=== PATIENT | male | born 1995 | race Caucasian/White ===

== ENCOUNTER → 2016-04-30 | Outpatient (CLI) | payer BC | LOC: BHSO 09:51 | DX: F31.73 Bipolar disorder, in partial remission, most recent episode manic (principal) ==

== ENCOUNTER → 2016-07-08 | Outpatient (CLI) | payer BC | LOC: BHSO 10:55 | DX: F31.73 Bipolar disorder, in partial remission, most recent episode manic (principal) ==

== ENCOUNTER → 2016-11-26 | Outpatient (CLI) | payer BC | LOC: BHSO 10:38 | DX: F20.9 Schizophrenia, unspecified (principal) ==

== ENCOUNTER → 2017-07-22 | Outpatient (CLI) | payer BC | LOC: BHSO 12:59 | DX: F31.81 Bipolar II disorder (principal) | CPT/HCPCS: G0463 ==

== ENCOUNTER → 2018-01-10 | Outpatient (CLI) | payer BC | LOC: BHSO 09:58 | DX: F31.81 Bipolar II disorder (principal) | CPT/HCPCS: G0463 ==

== ENCOUNTER → 2018-08-17 | Outpatient (CLI) | payer BC | LOC: BHSO 10:18 | DX: F31.81 Bipolar II disorder (principal) | CPT/HCPCS: G0463 ==

== ENCOUNTER → 2018-11-16 | Outpatient (CLI) | payer BC | LOC: BHSO 10:56 | DX: F31.81 Bipolar II disorder (principal) | CPT/HCPCS: G0463 ==

== ENCOUNTER → 2019-10-23 | Outpatient (CLI) | payer BC | LOC: BHSO 10:13 | DX: F31.81 Bipolar II disorder (principal) | CPT/HCPCS: G0463 ==

== ENCOUNTER 2020-03-07 13:29 | Emergency (ER) | payer BC ==
[~2020-03-07] VITALS: Ht 172.7 cm; Wt 71.8 kg
[2020-03-07 15:31] LABS: COLLECTION METHOD CLEAN CATCH
[2020-03-07 15:37] LABS: PH 8 (5-8); SQUAMOUS EPITHELIAL None Seen /hpf; URINE APPEARANCE Clear; URINE BACTERIA None Seen /hpf; URINE BILIRUBIN Negative (NEGATIVE); URINE BLOOD Negative (NEGATIVE); URINE COLOR Straw; URINE GLUCOSE Negative (NEGATIVE); URINE KETONE Negative (NEGATIVE); URINE LEUKOCYTE ESTERASE Negative (NEGATIVE); URINE NITRATE Negative (NEGATIVE); URINE PROTEIN(semi-quant) Negative (NEGATIVE); URINE RBC None Seen /hpf; URINE UROBILINOGEN Negative (NEGATIVE)
[2020-03-07 16:17] LABS: BASO % 0.6 % (0.0-2.0); EOS # 0.3 (0.0-0.7); EOS % 4.5 % (0-4.0); GRAN # 4.2 (1.4-6.5); GRAN % 63.3 % (42.2-75.2); HEMATOCRIT 44.9 % (42.0-52.0); HEMOGLOBIN 15.6 g/dl (13.5-18.0); LYMPH # 1.7 (1.2-3.4); LYMPH % 25.2 % (20.0-51.0); MEAN CELL VOLUME 86 fl (80.0-100.0); MEAN CORPUSCULAR HEMOGLOBIN 30 pg (27.0-31.0); MEAN CORPUSCULAR HGB CONC 35 g/dl (33.0-37.0); MEAN PLATELET VOLUME 10.3 fl (7.4-10.4); MONO # 0.4 (0.1-0.6); MONO % 6.2 % (1.7-9.3); PLATELET COUNT 235 K/mm3 (130-400); RED BLOOD COUNT 5.22 M/mm3 (4.20-5.60); REDCELL DISTRIBUTION WIDTH-CV 12.5 % (11.5-14.5)
[2020-03-07 16:32] LABS: ALANINE AMINOTRANSFERASE 16 U/L (4-49); ALBUMIN 4.2 gm/dL (3.5-5.0); ALKALINE PHOSPHATASE 72 U/L (50-136); ANION GAP 8 mmol/L (7-16); AST,SGOT 24 U/L (15-37); BILIRUBIN,TOTAL 0.4 mg/dL (0.0-1.0); BLOOD UREA NITROGEN 11 mg/dL (9-20); CALCIUM 9.3 mg/dL (8.4-10.2); CARBON DIOXIDE 25 mmol/L (22-30); CHLORIDE 105 mmol/L (98-107); CREATININE, serum 0.88 (0.66-1.25); GLUCOSE 105 mg/dL (74-106); POTASSIUM 4.3 mmol/L (3.4-5.0); SODIUM 138 mmol/L (137-145); TOTAL PROTEIN 7.4 gm/dL (6.4-8.2)
[2020-03-07 16:42] LABS: C-REACTIVE PROTEIN < 0.5 mg/dL (0.0-0.9)
[2020-03-07 17:50] VITALS: BP 127/74; PULSE 88; TEMP 98.2
== END 2020-03-07 17:52 | disposition home or self-care (01) ==
LOC: COL.ER 13:29
PROVIDERS: Nurse Practitioner
DX: R10.30 Lower abdominal pain, unspecified (principal)
CPT/HCPCS: Q9967

== ENCOUNTER 2020-09-04 10:35 | Observation (INO) | payer BC ==
[2020-09-04] VITALS (9 sets, daily range): BP systolic 100–153; BP diastolic 66–85; PULSE 65–89; TEMP 97–98.6
[~2020-09-04] VITALS: Ht 172.7 cm; Wt 83.8 kg
[2020-09-04] MEDS ORDERED: MELATONIN5 M1 SL (11:21)
[2020-09-04] MEDS ORDERED: ADVIL200 MG PO (11:22)
--- NOTE | 2020-09-04 11:23 | NUR ---
TO RM 6 AT 1046- CALL LIGHT IN REACH MOTHER AT BEDSIDE.
--- NOTE | 2020-09-04 17:45 | NUR ---
Patient up from OR. Drowsy but arouses to voice. Family at bedside. Denies pain at this time. Post op fluids and post op VSS. Denies further needs at this time.
[2020-09-04 17:46] LABS: BASO % 0.2 % (0.0-2.0); EOS # 0.1 (0.0-0.7); EOS % 0.8 % (0-4.0); GRAN # 11.6 (1.4-6.5); GRAN % 89.7 % (42.2-75.2); HEMATOCRIT 42.1 % (42.0-52.0); HEMOGLOBIN 14.2 g/dl (13.5-18.0); LYMPH # 0.9 (1.2-3.4); LYMPH % 7.3 % (20.0-51.0); MEAN CELL VOLUME 86 fl (80.0-100.0); MEAN CORPUSCULAR HEMOGLOBIN 29 pg (27.0-31.0); MEAN CORPUSCULAR HGB CONC 34 g/dl (33.0-37.0); MEAN PLATELET VOLUME 10.2 fl (7.4-10.4); MONO # 0.2 (0.1-0.6); MONO % 1.6 % (1.7-9.3); PLATELET COUNT 194 K/mm3 (130-400); RED BLOOD COUNT 4.89 M/mm3 (4.20-5.60); REDCELL DISTRIBUTION WIDTH-CV 12.6 % (11.5-14.5)
[2020-09-04] MEDS ORDERED: ADDERALL20 MG PO (17:50)
[2020-09-04 17:55] LABS: ALANINE AMINOTRANSFERASE 14 U/L (4-49); ALBUMIN 3.7 gm/dL (3.5-5.0); ALKALINE PHOSPHATASE 61 U/L (50-136); ANION GAP 2 mmol/L (7-16); AST,SGOT 19 U/L (15-37); BILIRUBIN,TOTAL 0.3 mg/dL (0.0-1.0); BLOOD UREA NITROGEN 12 mg/dL (9-20); CALCIUM 9.1 mg/dL (8.4-10.2); CARBON DIOXIDE 28 mmol/L (22-30); CHLORIDE 108 mmol/L (98-107); CREATININE, serum 0.83 (0.66-1.25); GLUCOSE 109 mg/dL (74-106); POTASSIUM 4.4 mmol/L (3.4-5.0); SODIUM 137 mmol/L (137-145); TOTAL PROTEIN 6.6 gm/dL (6.4-8.2)
[2020-09-04 18:07] LABS: TROPONIN-I < 0.012 ng/mL (0.000-0.035)
--- NOTE | 2020-09-04 18:45 | NUR ---
Reported off to nightman.
--- NOTE | 2020-09-04 18:45 | NUR ---
SHIFT REPORT REC'D FROM ZUNILDA OMALLEY R.N. PT HAD MID ABD INCICION [employer]. NO DRAINAGE NOTED. PAIN UNDER CONTROL AT THIS TIME.
--- NOTE | 2020-09-04 19:40 | NUR ---
SITTING UP IN BED EATING HIS MEAL. NO NEEDS AT THIS TIME. LR CHANGED TO IV PUMP RUNNING AT 100CC/HR TO RT WRIST.
--- NOTE | 2020-09-04 21:10 | NUR ---
PT ATE OF DINNER. NO COMPLAINTS. NO DISTRESS.
--- NOTE | 2020-09-04 22:04 | NUR ---
PT RESTING COMFORTABLY WITH EYES CLOSED. WAKES EASILY FOR VS. NO NEEDS AT THIS TIME. ABD INCISION CDI.
[2020-09-04 23:02] LABS: TRICYCLIC ANTIDEPRESS URINE NEGATIVE
[2020-09-05 00:01] VITALS: BP 140/68; PULSE 84; TEMP 98.6
--- NOTE | 2020-09-05 02:08 | NUR ---
PT AWAKE. NO COMPLAINTS AT THIS TIME. EATING CRACKERS AND DRINKING WATER WELL.
[2020-09-05 04:13] VITALS: BP 142/65; PULSE 88; TEMP 97.9
--- NOTE | 2020-09-05 06:03 | NUR ---
PT SLEEPING. NO DISTRESS.
[2020-09-05 08:19] VITALS: BP 137/76; PULSE 68; TEMP 97.9
--- NOTE | 2020-09-05 09:00 | NUR ---
Patient is resting in bed, mother is in the room complains of pain in the right shoulder. After surgery side effects where explained. Alert and oriented x4, vital signs stable, no nause or vomiting. Insicion in abdoment with edges well approximated. No further needs at the moment. Call light within reach.
[2020-09-05 12:12] VITALS: BP 132/68; PULSE 70; TEMP 97.7
--- NOTE | 2020-09-05 12:14 | NUR ---
Initial visit; Patient thanked Orthotic Aide for looking in on him. Orthotic Aide will keep patient in her prayers.
[2020-09-05 15:23] VITALS: BP 145/78; PULSE 76; TEMP 97.8
--- NOTE | 2020-09-05 17:29 | NUR ---
Patient was discharged and provided information, questions answered and IV discontinued. He left with mother and hospital staff.
== END 2020-09-05 17:30 | disposition home or self-care (01) ==
LOC: SDCO 10:35 → SURG 10:40 → SDCO 11:00 → SURG 11:01 → SDCO 13:00 → SURG 09-05 13:33 → SDCO 09-05 13:33 → SURG 09-05 13:34
PROVIDERS: ADMIT Surgery
DX: K40.90 Unilateral inguinal hernia, without obstruction or gangrene, not specified as recurrent (principal); I97.711 Intraoperative cardiac arrest during other surgery; F20.9 Schizophrenia, unspecified; Z20.822 Contact with and (suspected) exposure to COVID-19
CPT/HCPCS: OP; A4314; G0378; J0690; J1100; J1885; J2405; J2704; J3010; J7120

== ENCOUNTER 2020-09-08 09:38 | Day surgery (SDC) | payer BC ==
[~2020-09-08] VITALS: Ht 172.7 cm; Wt 83.7 kg
[2020-09-08] VITALS (7 sets, daily range): BP systolic 104–128; BP diastolic 56–83; PULSE 52–71; TEMP 97.9–98.8
[~2020-09-08 09:38] MED LIST: ADDERALL20 MG PO; ADVIL200 MG PO; MELATONIN5 M1 SL
[2020-09-08] MEDS ORDERED: MOTRIN 600600 MG/TAB PO (14:06)
[2020-09-08] MEDS ORDERED: NORCO 325 MG-51 TAB PO (14:06)
--- NOTE | 2020-09-08 14:30 | NUR ---
PATIENT BROUGHT BACK TO [facility] VIA CART. ALERT AND ORIENTED, PALE IN COLOR. VITAL SIGNS STABLE. MOTHER AT BEDSIDE. STATES PAIN IS 5/10 TO RIGHT HIP. DENIES NAUSEA. REQUESTS WATER AND CRACKERS AT THIS TIME. CALL RODRIGUEZ WITHIN REACH, WILL MONITOR.
--- NOTE | 2020-09-08 14:45 | NUR ---
PATIENT TOLERATING FOOD AND DRINK WITHOUT DIFFICULTY. WILL CONTINUE TO MONITOR.
--- NOTE | 2020-09-08 15:15 | NUR ---
PATIENT AMBULATED TO BATHROOM WITH STANDBY ASSIST. URINATED WITHOUT DIFFICULTY.
--- NOTE | 2020-09-08 15:45 | NUR ---
PATIENT STATES HE IS FEELING BETTER AND READY TO GO HOME. IV REMOVED, INTACT. PATIENT TO GET DRESSED AT THIS TIME.
--- NOTE | 2020-09-08 16:00 | NUR ---
PATIENTS INCISION TO RIGHT GROIN CDI. DISCHARGE EDUCATION REVIEWED WITH MOTHER AND PATIENT, VERBALIZED UNDERSTANDING. PATIENT BROUGHT DOWN TO LOBBY VIA WHEEL CHAIR. TO BE DRIVEN HOME BY MOTHER.
== END 2020-09-08 16:00 | disposition home or self-care (01) ==
LOC: SDCO 09:38
DX: K40.90 Unilateral inguinal hernia, without obstruction or gangrene, not specified as recurrent (principal); F90.9 Attention-deficit hyperactivity disorder, unspecified type; F20.9 Schizophrenia, unspecified; Z79.899 Other long term (current) drug therapy
CPT/HCPCS: C1781; J0330; J1100; J2250; J2405; J2704; J3010; J7120

== ENCOUNTER 2021-08-28 19:08 | Emergency (ER) | payer OTHER, BC ==
[~2021-08-28] VITALS: Ht 172.7 cm; Wt 81.8 kg
[~2021-08-28 19:08] MED LIST changes: +MOTRIN 600600 MG/TAB PO; +NORCO 325 MG-51 TAB PO
[2021-08-28 19:16] VITALS: TEMP 98
[2021-08-28] MEDS ORDERED: NORCO 325 MG-51 TAB PO (21:08)
[2021-08-28 21:15] LABS: TRICYCLIC ANTIDEPRESS URINE NEGATIVE
[2021-08-28 21:41] VITALS: BP 153/106; PULSE 80
== END 2021-08-28 21:41 | disposition home or self-care (01) ==
LOC: COL.ER 19:08
PROVIDERS: Personal Emergency Response Attendant
DX: S52.502A Unspecified fracture of the lower end of left radius, initial encounter for closed fracture (principal); W11.XXXA Fall on and from ladder, initial encounter; Y92.59 Other trade areas as the place of occurrence of the external cause; Y99.0 Civilian activity done for income or pay